=== PATIENT | female | born 1955 | race African-American/Black ===

== ENCOUNTER → 2022-10-13 | Day surgery (SDC) | payer MEDICARE, MEDICAID ==
[~2022-10-13] VITALS: Ht 171.4 cm; Wt 88.0 kg
[~2022-10-13] MED LIST: ACETAMINOPHEN WITH CODEINE 300/30MG TABLET PO PRN; ALBU18HF2 IH; AMLO10TA80 PO; BUPIVACAINE HCL/PF 0.5% (5MG/ML) 30ML ONE; BUPR-114 PO; CLINDAMYCIN 600MG PREMIX 50 ML IV ONE; CLINDAMYCIN 900 MG PREMIX 50 ML IV ONE; DEXAMETHASONE 4MG/ML 1ML VIAL ONE; FENTANYL CITRATE/PF 50MCG/ML 2ML VIAL ONE; GABA-532 PO; LACTATED RINGERS 1,000 ML IV SCH; LIDOCAINE HCL 1% 20ML VIAL (Pyxis) INJ ONE; LORA10TA7 PO; MIDAZOLAM HCL 2 MG/2 ML VIAL ONE; ONDANSETRON HCL 4MG/2ML INJ IV PRN; ONDANSETRON HCL 4MG/2ML INJ ONE; POLYMYXIN B SULFATE 500000 UNITS/VIAL ONE; PROPOFOL 200MG/20ML VIAL IV ONE; ROCURONIUM BROMIDE 10MG/ML VIAL 5ML IV ONE; SKIN ADHESIVE 0.7 GM EA TOP ONE; SUCCINYLCHOLINE CHLORIDE 200MG/10ML IV ONE; TRAZ-252 PO; TRIA1TAB92 PO
[2022-10-13] MEDS: HYDROMORPHONE HCL/PF 2MG/ML CPJ IV PRN ×2 (09:17→09:32)
[2022-10-13] MEDS: FENTANYL CITRATE/PF 50MCG/ML 2ML VIAL IV PRN ×2 (09:56→10:01)
[2022-10-13 11:58] VITALS: BP 117/76
== END | disposition home or self-care (01) ==
LOC: OR 05:27
PROVIDERS: ATTEND Surgery
DX: K43.9 Ventral hernia without obstruction or gangrene (principal); I10 Essential (primary) hypertension; E78.00 Pure hypercholesterolemia, unspecified; M19.90 Unspecified osteoarthritis, unspecified site; F41.9 Anxiety disorder, unspecified; F32.9 Major depressive disorder, single episode, unspecified; Z79.899 Other long term (current) drug therapy; Z98.890 Other specified postprocedural states; Z90.710 Acquired absence of both cervix and uterus
CPT/HCPCS: 49593; 87426; 88302; C1781; C9803; J0330; J1100; J1170; J2250; J2405; J2704; J3010; J3490

== ENCOUNTER → 2022-11-30 | Day surgery (SDC) | payer MEDICARE, MEDICAID ==
[~2022-11-30] VITALS: Ht 170.2 cm; Wt 94.8 kg
[2022-11-30] VITALS (10 sets, daily range): BP systolic 87–112; BP diastolic 45–64
[~2022-11-30] MED LIST changes: -ACETAMINOPHEN WITH CODEINE 300/30MG TABLET PO PRN; -BUPIVACAINE HCL/PF 0.5% (5MG/ML) 30ML ONE; -CLINDAMYCIN 600MG PREMIX 50 ML IV ONE; -CLINDAMYCIN 900 MG PREMIX 50 ML IV ONE; -DEXAMETHASONE 4MG/ML 1ML VIAL ONE; +FENTANYL CITRATE/PF 50MCG/ML 2ML VIAL IV NR; -LACTATED RINGERS 1,000 ML IV SCH; +LIDOCAINE HCL 1% 10 MG/ML 10ML VIAL ONE; -LIDOCAINE HCL 1% 20ML VIAL (Pyxis) INJ ONE; -MIDAZOLAM HCL 2 MG/2 ML VIAL ONE; -ONDANSETRON HCL 4MG/2ML INJ IV PRN; -ONDANSETRON HCL 4MG/2ML INJ ONE; -POLYMYXIN B SULFATE 500000 UNITS/VIAL ONE; -PROPOFOL 200MG/20ML VIAL IV ONE; -ROCURONIUM BROMIDE 10MG/ML VIAL 5ML IV ONE; -SKIN ADHESIVE 0.7 GM EA TOP ONE; +SODIUM BICARBONATE 4% (2.4MEQ) 5ML VIAL IV ONE; -SUCCINYLCHOLINE CHLORIDE 200MG/10ML IV ONE
== END | disposition home or self-care (01) ==
LOC: RAD 08:39
PROVIDERS: ATTEND Internal Medicine Critical Care Medicine
DX: R91.8 Other nonspecific abnormal finding of lung field (principal); Z79.899 Other long term (current) drug therapy; Z88.0 Allergy status to penicillin
CPT/HCPCS: 32408; 71045; 88305; J3010; J3490; 99152; 99153; G0500